=== PATIENT | male | born 1980 | race Two or more races ===

== ENCOUNTER 2019-09-14 15:37 | Emergency (ER) | payer OTHER ==
[~2019-09-14] VITALS: Ht 175.3 cm; Wt 93.0 kg
[2019-09-14 15:40] VITALS: BP 143/81
== END 2019-09-14 16:18 | disposition home or self-care (01) ==
LOC: ER 15:41
DX: Z03.818 Encounter for observation for suspected exposure to other biological agents ruled out (principal)
CPT/HCPCS: 99283; U0003

== ENCOUNTER 2019-10-14 17:14 | Emergency (ER) | payer OTHER ==
[~2019-10-14] VITALS: Ht 177.8 cm; Wt 93.0 kg
[2019-10-14 17:38] VITALS: BP 146/90
--- NOTE | 2019-10-14 18:51 | NUR ---
Patient discharged to home in stable condition. Written and verbal after care instructions given. Patient verbalizes understanding of instruction.
== END 2019-10-14 18:51 | disposition home or self-care (01) ==
LOC: ER 17:21
DX: Z11.59 Encounter for screening for other viral diseases (principal)
CPT/HCPCS: 99283; C9803; U0003

== ENCOUNTER 2020-04-01 09:52 | Emergency (ER) | payer OTHER ==
[~2020-04-01] VITALS: Ht 175.3 cm; Wt 93.0 kg
[2020-04-01 09:57] VITALS: BP 118/71
--- NOTE | 2020-04-01 10:09 | NUR ---
COVID SWAB TEST COLLECTED AND SENT TO THE LAB.
--- NOTE | 2020-04-01 10:15 | NUR ---
Patient discharged to home in stable condition. Written and verbal after care instructions given. Patient verbalizes understanding of instruction.
--- NOTE | 2020-04-02 22:33 | NUR ---
NOTIFIED OF COVID RESULTS, PT IS NEGATIVE FOR COVID
== END 2020-04-01 10:15 | disposition home or self-care (01) ==
LOC: ER 09:53
DX: Z20.828 Contact with and (suspected) exposure to other viral communicable diseases (principal)
CPT/HCPCS: 99283; C9803; U0003

== ENCOUNTER 2020-04-12 00:47 | Emergency (ER) | payer OTHER ==
[~2020-04-12] VITALS: Ht 175.3 cm; Wt 93.0 kg
[2020-04-12 00:48] VITALS: BP 119/72
== END 2020-04-12 00:58 | disposition home or self-care (01) ==
LOC: ER 00:47
DX: Z20.828 Contact with and (suspected) exposure to other viral communicable diseases (principal)
CPT/HCPCS: 99283; C9803; U0003

== ENCOUNTER 2020-04-16 10:25 | Emergency (ER) | payer OTHER ==
[~2020-04-16] VITALS: Ht 175.3 cm; Wt 93.0 kg
--- NOTE | 2020-04-16 11:06 | NUR ---
COVID SWAB SENT. Patient discharged to home in stable condition. Written and verbal after care instructions given. Patient verbalizes understanding of instruction.
[2020-04-16 11:07] VITALS: BP 136/93
== END 2020-04-16 11:07 | disposition home or self-care (01) ==
LOC: ER 10:28
DX: U07.1 COVID-19 (principal)
CPT/HCPCS: 87426; 99283; C9803

== ENCOUNTER 2022-02-07 08:49 | Emergency (ER) | payer OTHER ==
[~2022-02-07] VITALS: Ht 177.8 cm; Wt 95.3 kg
[2022-02-07 08:52] VITALS: BP 148/90
--- NOTE | 2022-02-07 08:53 | NUR ---
BIBS W/ C/O NEEDLESTICK INJURY AFTER ABG PROCEDURE.
--- NOTE | 2022-02-07 08:55 | NUR ---
SEEN BY DR. VANG FOR EVAL
--- NOTE | 2022-02-07 09:15 | NUR ---
Patient discharged to home in stable condition. Written and verbal after care instructions given. Patient verbalizes understanding of instruction.
[2022-02-07 09:40] LABS: BASOPHILS # (AUTO) 0.1 K/uL (0.0-0.2); BASOPHILS % (AUTO) 0.6 % (0.0-2.0); EOSINOPHILS % (AUTO) 1.3 % (0.0-6.0); HEMATOCRIT 46 % (39-51); HEMOGLOBIN 15.8 g/dL (13.5-17.5); LYMPHOCYTES # (AUTO) 2.4 K/uL (0.8-4.8); LYMPHOCYTES % (AUTO) 27.1 % (20.0-44.0); MEAN CORPUSCULAR HGB CONC 34 g/dl (31.0-36.0); MEAN CORPUSCULAR VOLUME 82 fL (80-96); MONOCYTES # (AUTO) 0.7 K/uL (0.1-1.30); MONOCYTES % (AUTO) 7.4 % (2.0-12.0); NEUTROPHILS # (AUTO) 5.8 K/uL (1.8-8.9); NEUTROPHILS % (AUTO) 63.6 % (43.0-81.0); PLATELET COUNT (AUTO) 195 K/uL (150-450); RED BLOOD CELL COUNT(AUTO) 5.63 MIL/uL (4.5-6.0)
[2022-02-07 09:50] LABS: CALCIUM, SERUM 9.2 mg/dL (8.5-10.1); CREATININE 0.7 mg/dL (0.6-1.3); POTASSIUM 3.9 mmol/L (3.5-5.1)
[2022-02-07 09:56] LABS: ALBUMIN 4.1 g/dL (3.4-5.0); BILIRUBIN,DIRECT 0.2 mg/dL (0.0-0.2); BILIRUBIN,TOTAL 0.7 mg/dL (0.2-1.0); TOTAL PROTEIN, SERUM 7.9 g/dL (6.4-8.2)
[2022-02-10 10:06] LABS: HEPATITIS Be AB Negative (Negative)
== END 2022-02-07 10:08 | disposition home or self-care (01) ==
LOC: ER 08:59
DX: S61.230A Puncture wound without foreign body of right index finger without damage to nail, initial encounter (principal); W46.0XXA Contact with hypodermic needle, initial encounter; Y93.89 Activity, other specified; Y92.89 Other specified places as the place of occurrence of the external cause; Y99.0 Civilian activity done for income or pay
CPT/HCPCS: 36415; 80048-TC; 80076-TC; 85025-TC; 86704; 86705; 86706; 86707; 86803; 87340; 87350